=== PATIENT | female | born 1990 | race Caucasian/White ===

== ENCOUNTER 2017-12-01 19:20 | Inpatient (IN) | payer OTHER ==
[2017-12-01 19:55] VITALS: BMI 21.1
[2017-12-01] MEDS ORDERED: Lidocaine 1% (PF) 30 ML VIAL ONE (20:49)
[2017-12-01] MEDS ORDERED: Oxytocin 10 UNITS/ML VIAL ONE (20:49)
[2017-12-01] MEDS ORDERED: HYDROcodone/Acetaminophen 5/325 mg Tablet PO PRN ×4 (21:09→23:38)
[2017-12-01] MEDS ORDERED: Ibuprofen 800 MG TAB PO PRN (21:09)
[2017-12-01] MEDS ORDERED: Lidocaine 1% (PF) 30 ML VIAL SC PRN (21:09)
[2017-12-01] MEDS ORDERED: Ondansetron HCl/PF 4 MG/2 ML Vial IVP PRN (21:09)
[2017-12-01] MEDS ORDERED: LR / Pitocin 40 units/1000 ml 1,000 ML IV PRN (21:09)
[2017-12-01] MEDS ORDERED: Promethazine HCl 25 MG/ML VIAL IM PRN (21:09)
--- NOTE | 2017-12-01 21:16 | PDOC.OPDEL ---
OB Operative/Delivery Note Delivery Dr/Surgeon: Light Pre-Delivery Diagnosis: active labor, ruptured membrane Procedure/Post Delivery Dx: spontaneous vaginal delivery Weeks gestation: 38 Anesthesia: none - Findings A Sex: male Weight: 7 lb 1 oz - 1 min: 8 - 5 min: 9 - Additional Findings/Plan Placenta delivered: spontaneous Repaired Obstetrical Laceration: none Estimated blood loss: 200 Post delivery plan: routine recovery
[2017-12-01 21:39] LABS: Hemoglobin 10.2 g/dL (12.0-16.0); Mean Corpuscular HGB CONC 33.9 g/dL (32.0-36.0); Mean Corpuscular Hemoglobin 32.1 pg (27.0-31.0); Mean Corpuscular Volume 94.7 fl (81.0-99.0); Mean Platelet Volume 8.9 fL (7.4-10.4); Platelet Count 181 thou/uL (130-400); RBC Distribution Width 12.2 % (11.5-14.5); Red Blood Cell (RBC) Count 3.18 mill/uL (4.20-5.40); White Blood Cell (WBC) Count 11.4 thou/uL (4.8-10.8)
[2017-12-01 22:30] LABS: Syphilis Antibody Nonreactive (Nonreactive); Syphilis Antibody Index 0.04 S/CO (<1.00 Non-Reactive)
[2017-12-01] MEDS ORDERED: Benzocaine/Menthol 20-0.5% 60 ML CAN TOP PRN (23:38)
[2017-12-01] MEDS ORDERED: Bisacodyl 10 MG SUPP PR PRN (23:38)
[2017-12-01] MEDS ORDERED: Lanolin Ointment 7 GM TUBE TOP PRN (23:38)
[2017-12-01] MEDS ORDERED: Methylergonovine 0.2 MG/ML VIAL IM PRN (23:38)
[2017-12-01] MEDS ORDERED: Milk Of Magnesia 30 ML UDCUP PO PRN (23:38)
[2017-12-01] MEDS ORDERED: LR / Pitocin 40 units/1000 ml 1,000 ML IV SCH (23:38)
[2017-12-01] MEDS ORDERED: Misoprostol 200 MCG TAB VAG SCH (23:45)
[2017-12-01 23:47] LABS: HBSAg Index 0.43 S/CO (0-0.99); Hep B Surf Ag Non-Reactive S/CO (NonReactive)
[2017-12-02] MEDS: Ibuprofen 800 MG TAB PO SCH ×3 (04:58→21:52)
[2017-12-02 07:01] LABS: Hemoglobin 9.7 g/dL (12.0-16.0); Mean Corpuscular HGB CONC 33.8 g/dL (32.0-36.0); Mean Corpuscular Volume 94.6 fl (81.0-99.0); Mean Platelet Volume 9.2 fL (7.4-10.4); Platelet Count 163 thou/uL (130-400); RBC Distribution Width 12.1 % (11.5-14.5); Red Blood Cell (RBC) Count 3.04 mill/uL (4.20-5.40)
[2017-12-02] MEDS: Ferrous Sulfate 325 MG TAB PO SCH ×2 (08:24→17:25)
[2017-12-02] MEDS: Docusate Calcium (SURFAK) 240 MG CAP PO SCH ×2 (08:24→21:52)
[2017-12-02] MEDS ORDERED: Prenatal Vitamin 1 TAB PO SCH (09:00)
[2017-12-02] MEDS ORDERED: Adacel (T-DAP) 0.5 ML VIAL IM ONE (09:00)
--- NOTE | 2017-12-02 18:30 | PDOC.PP ---
Post Progress Note Post Day #: 1 Subjective: doing really well. up and moving around. bleeding is minimal PO intake tolerated: yes Flatus: yes Ambulation: yes Vital Signs (12 hours) Temp Pulse Resp BP BP 12/02/17 17:25 97.9 F 69 18 100/56 L 12/02/17 11:30 98.1 F 69 18 118/65 12/02/17 08:00 97.8 F 89 18 109/63 Weight Weight 135 lb - Physical Examination General: NAD Cardiovascular: RRR Respiratory: clear to auscultation bilaterally, non-labored breathing Abdominal: lochia (minimal) Extremities: negative homans (B) Skin: no rash Neurological: no gross focal deficits Psychiatric: A&Ox3 Result Diagrams: 12/02/17 06:18 Additional Labs: Post Labs Blood Type O POSITIVE 12/01/17 21:28 Hep Bs Antigen Non-Reactive S/CO (NonReactive) 12/01/17 21:28 (1) (spontaneous vaginal delivery) Code(s): O80 - ENCOUNTER FOR FULL-TERM UNCOMPLICATED DELIVERY Status: Acute (2) Term of male Code(s): Z37.0 - SINGLE LIVE Status: Acute - Assessment/Plan discharge home today if is discharged
[2017-12-02 23:02] VITALS: BP 115/60; TEMP 97.8
== END 2017-12-02 22:00 | disposition home or self-care (01) | DRG 775 ==
LOC: L&D/OP 19:20 → L&D-LIB 20:51 → 3SW 23:38
PROVIDERS: ADMIT Obstetrics & Gynecology; ATTEND Obstetrics & Gynecology
PROC: 10E0XZZ Delivery of Products of Conception, External Approach (ICD-10-PCS; principal; 2017-12-01)
DX: O80 Encounter for full-term uncomplicated delivery (principal); Z3A.38 38 weeks gestation of pregnancy; Z37.0 Single live birth
CPT/HCPCS: 36415; 85027; 86780; 86850; 86900; 86901; 87340; 99285; J2001; J2590

== ENCOUNTER 2019-11-19 15:37 | Day surgery (SDC) | payer OTHER ==
[2019-11-19 15:58] VITALS: BMI 18.9
[2019-11-19 17:11] LABS: Amnisure Test No Membranes Rupture (No Rupture)
[2019-11-19 17:12] LABS: Amnisure Internal Control QC ACCEPTABLE (ACCEPTABLE)
[2019-11-19] MEDS ORDERED: hydrALAZINE 20 MG/ML VIAL SLOW IVP PRN (17:22)
--- NOTE | 2019-11-19 17:41 | PDOC.LDHP ---
Labor and Delivery H&P Chief complaint: other (cramping and spotting) HPI: Pt presents w concerns about cramping and a spotting episode that started today after going for a walk. Pt does report having intercourse yesterday and no bleeding noted immediately after. Good FM, no vaginal discharge noted. Current gestational age (weeks): 26 Due date: 02/23/20 Dating criteria: last menstrual period, first trimester ultrasound Grav: 5 Para: 4 OB History Details: x 4 Current complications: other (bleeding first trimester) Current medications: pre- vitamins Previous surgical history: none Allergies/Adverse Reactions: Allergies Allergy/AdvReac Type Severity Reaction Status Date / Time No Known Drug Allergies Allergy Verified 07/02/16 01:05 Social history: none - Physical Exam Vital signs reviewed and normal: yes General: NAD, resting Lungs: nonlabored breathing Extremeties: no edema [place] contractions every: FHT 140s on doppler - Vaginal Exam cm dilated: 0 (small punctate bleeding at ectocervix, visually long and closed cervix, no pooling or discharge noted) - OB Labs Blood type: A RH: positive - Plan -: A/P: 29yo @ 26 weeks with an episode of spotting and cramping earlier today. Normal exam findings with exception of small punctate bleeding at ectocervix seen on exam. VP3 and amnisure ordered, if negative will send home this evening with ED precautions.
== END 2019-11-19 18:20 | disposition home health service (06) ==
LOC: L&D/OP 15:37
PROVIDERS: ATTEND Advanced Practice Midwife
DX: O26.852 Spotting complicating pregnancy, second trimester (principal); O99.89 Other specified diseases and conditions complicating pregnancy, childbirth and the puerperium; R10.9 Unspecified abdominal pain; Z3A.26 26 weeks gestation of pregnancy
CPT/HCPCS: 84112; 87480; 87510; 87660; 99283

== ENCOUNTER 2020-02-23 12:42 | Inpatient (IN) | payer OTHER ==
[2020-02-23] MEDS ORDERED: HYDROcodone/Acetaminophen 5/325 mg Tablet PO PRN ×4 (13:04→17:15)
[2020-02-23] MEDS ORDERED: Promethazine HCl 25 MG/ML VIAL IM PRN (13:04)
[2020-02-23] MEDS ORDERED: Ibuprofen 800 MG TAB PO PRN (13:04)
[2020-02-23] MEDS ORDERED: hydrALAZINE 20 MG/ML VIAL SLOW IVP PRN ×2 (13:04→17:15)
[2020-02-23] MEDS ORDERED: Misoprostol 200 MCG TAB PR PRN (13:04)
[2020-02-23] MEDS ORDERED: Lidocaine 1% (PF) 30 ML VIAL SC PRN (13:04)
[2020-02-23] MEDS ORDERED: Lactated Ringer's 1,000 ML IV PRN (13:04)
[2020-02-23] MEDS ORDERED: Diphenoxylate HCl/Atropine Tablet PO PRN ×2 (13:04)
[2020-02-23] MEDS ORDERED: Ondansetron PF 4 MG/2 ML Vial IVP PRN (13:04)
[2020-02-23] MEDS ORDERED: Carboprost 250 MCG/ML AMP IM PRN (13:04)
[2020-02-23] MEDS ORDERED: Methylergonovine 0.2 MG/ML VIAL IM PRN ×2 (13:04→17:15)
[2020-02-23] MEDS ORDERED: NS / Oxytocin 40 units/1000ml 1,000 ML IV PRN (13:04)
--- NOTE | 2020-02-23 13:11 | PDOC.LDHP ---
Labor and Delivery H&P Chief complaint: contractions, loss of fluid HPI: SROM 0800. Clear fluid. Affirms movement. Current gestational age (weeks): 40 Due date: 02/23/20 Dating criteria: last menstrual period Grav: 5 Para: 4 OB History Details: 2012 6.2oz 2015 6. 10oz 2016 7lbs 2018 7.9 2020 Current Current complications: other (resolved subchorionic hematoma - resolved at [id number].) Current medications: pre-devon vitamins Previous surgical history: none Allergies/Adverse Reactions: Allergies Allergy/AdvReac Type Severity Reaction Status Date / Time No Known Drug Allergies Allergy Verified 07/02/16 01:05 - Physical Exam Vital signs reviewed and normal: yes General: breathing through contractions Heart: other Lungs: nonlabored breathing Abdomen: gravid Extremeties: no edema FHT: category 1 - Vaginal Exam cm dilated: 5 Effacement: 90% Station: 1+ - OB Labs Blood type: O RH: positive Antibody Screen: negative HIV: negative RPR: negative HEPSAg: negative 1 hour GCT: negative GBS: negative Urine drug screen: negative Rubella: immune - Assessment L&D Assessment: term patient in labor - Plan Plan: admit to L&D, informed consent obtained (Pt declines epidural Declines IV - risks discussed. IM pitocin at bedside)
[2020-02-23] MEDS ORDERED: Oxytocin 10 UNITS/ML VIAL ONE (13:19)
[2020-02-23 15:17] VITALS: BMI 20.3
[2020-02-23] MEDS ORDERED: Milk Of Magnesia 30 ML UDCUP PO PRN (17:15)
[2020-02-23] MEDS ORDERED: Benzocaine-Menthol 82.5 ML CAN TOP PRN (17:15)
[2020-02-23] MEDS ORDERED: Bisacodyl 10 MG SUPP PR PRN (17:15)
[2020-02-23] MEDS ORDERED: Misoprostol 200 MCG TAB VAG PRN (17:15)
[2020-02-23] MEDS: Ibuprofen 800 MG TAB PO SCH (20:03)
[2020-02-23] MEDS: Docusate Calcium (SURFAK) 240 MG CAP PO SCH (20:03)
[2020-02-23 20:25] LABS: Syphilis Antibody Nonreactive (Nonreactive); Syphilis Antibody Index 0.03 S/CO (<1.00 Non-Reactive)
[2020-02-23 23:17] LABS: HBSAg Index 0.14 S/CO (0-0.99); Hep B Surf Ag Non-Reactive S/CO (NonReactive)
[2020-02-24] MEDS: Ibuprofen 800 MG TAB PO SCH ×3 (05:55→20:14)
[2020-02-24] MEDS: Ferrous Sulfate 325 MG TAB PO SCH ×2 (07:34→15:36)
[2020-02-24] MEDS: Docusate Calcium (SURFAK) 240 MG CAP PO SCH ×2 (08:42→20:14)
[2020-02-24] MEDS: Prenatal Vitamin 1 TAB PO SCH (08:42)
[2020-02-24] MEDS ORDERED: Adacel (T-DAP) 0.5 ML SYRINGE IM ONE (17:15)
[2020-02-25] MEDS: Ibuprofen 800 MG TAB PO SCH (05:38)
[2020-02-25 08:14] VITALS: BP 109/51; TEMP 97.7
--- NOTE | 2020-02-25 08:37 | PDOC.PP ---
Post Progress Note Post Day #: 1 Subjective: Doing well. Infant is under lights. PO intake tolerated: yes Flatus: yes Ambulation: yes Vital Signs (12 hours) Temp Pulse Resp BP 02/25/20 08:14 97.7 F 76 20 109/51 L Weight Weight 130 lb - Physical Examination General: NAD Respiratory: non-labored breathing Abdominal: no distention Skin: no rash Psychiatric: A&Ox3, normal affect Additional Labs: Post Labs Hep Bs Antigen Non-Reactive S/CO (NonReactive) 02/23/20 19:26 (1) (spontaneous vaginal delivery) Code(s): O80 - ENCOUNTER FOR FULL-TERM UNCOMPLICATED DELIVERY Status: Acute - Assessment/Plan routine care. hold dischjarge for infant
[2020-02-25] MEDS: Ferrous Sulfate 325 MG TAB PO SCH (09:19)
[2020-02-25] MEDS: Prenatal Vitamin 1 TAB PO SCH (09:20)
[2020-02-25] MEDS: Docusate Calcium (SURFAK) 240 MG CAP PO SCH (09:20)
== END 2020-02-25 11:40 | disposition home or self-care (01) | DRG 807 ==
LOC: L&D/OP 12:42 → L&D-LIB 13:04 → 3SW 17:00
PROVIDERS: ADMIT Obstetrics & Gynecology; ATTEND Obstetrics & Gynecology
PROC: 10E0XZZ Delivery of Products of Conception, External Approach (ICD-10-PCS; principal; 2020-02-23)
DX: O80 Encounter for full-term uncomplicated delivery (principal); Z37.0 Single live birth; Z3A.40 40 weeks gestation of pregnancy
CPT/HCPCS: 36415; 86780; 87340; 99285; J2590